=== PATIENT | male | born 1980 | race Caucasian/White ===

== ENCOUNTER → 2016-08-01 | Outpatient (CLI) | payer OTHER ==
--- NOTE | 2016-08-01 11:48 | DIAGNOSTIC IMAGING REPORT ---
LEFT FOOT MIN 3 VIEWS ROUTINE CLINICAL HISTORY: Left foot pain COMPARISON: None. DISCUSSION: No fractures are visualized. There is a plantar calcaneal spur. There are no erosive or destructive changes. There is a tiny bone island within the calcaneus. IMPRESSION: 1. No acute fractures. 2. No evidence of erosive disease 3. Plantar calcaneal spur Electronically signed by: Roger Ramirez M.D. 08/01/2016 11:46 AM Dictated Date/Time: 08/01/2016 11:45 AM
== END | disposition home or self-care (01) ==
LOC: C.RADBC 11:01
PROVIDERS: ATTEND Nurse Practitioner
DX: M79.672 Pain in left foot (principal); M77.32 Calcaneal spur, left foot

== ENCOUNTER → 2016-08-09 | Outpatient (CLI) | payer OTHER ==
--- NOTE | 2016-08-09 08:27 | DIAGNOSTIC IMAGING REPORT ---
LEFT FOOT ULTRASOUND CLINICAL HISTORY: Left lateral foot pain. COMPARISON STUDY: Left foot radiographs August 01, 2016. TECHNIQUE: Sonography of the lateral left foot at site of maximal pain was performed. FINDINGS: No mass, fluid collection or other sonographic abnormality was identified within the left foot site of maximal pain. Tendons were not well assessed by sonography. IMPRESSION: No sonographic abnormality identified within the lateral left foot at site of maximal pain. Electronically signed by: Magnus Dvaid M.D. 08/09/2016 8:26 AM Dictated Date/Time: 08/09/2016 8:25 AM
== END | disposition home or self-care (01) ==
LOC: C.ULTR 08:02
PROVIDERS: ATTEND Nurse Practitioner
DX: M79.672 Pain in left foot (principal)